=== PATIENT | female | born 1995 | race African-American/Black ===

== ENCOUNTER 2017-08-11 16:06 | Emergency (ER) | payer SELFPAY ==
[2017-08-11 16:11] VITALS: BP 120/79; BMI 21.6
--- NOTE | 2017-08-11 16:32 | ED.ABDFE ---
HPI - Time seen Time seen: 16:50 - PCP Primary Care Physician: JAM - HPI Comment HPI Comment: NO VAGINAL BLEEDING. PATIENT IS 5 MONTHS . NO CARE SO FAR. NO DYSURIA. - Complaint Chief Complaint Doctors Comments: LOWER ABDOMINAL PAIN TIMES 2 DAYS. Chief Complaint:: PATIENT STATED SHE THINKS SHE IS 4 OR 5 MONTHS WITH HER 4TH . SHE STATED SHE HAS BEEN HAVING ABD CRAMPS FOR TWO DAYS - Nurses notes reviewed Nurses Notes Review: Yes - Source History Provided: Patient - Mode of arrival Mode of Arrival: Ambulatory - Timing Onset of Chief Complaint: 08/09/17 Came on: Suddenly - Duration Duration: Constant Duration: Days - Location Location: RLQ, LLQ, Suprapubic - Severity Severity: Moderate - Quality Quality: Cramping - Context Onset: At Rest History of: None - Modifying Worsening Factors: Nothing Improving Factors: Nothing - Associated signs and symptoms Associated Signs and Symptoms: Nausea PMH - PMH Past Medical History: No Past Surgical History: No - Family History History of Family Medical Conditions: Yes Family Medical History: Diabetes Mellitus, Hypertension - Social History Does patient currently use any type of tobacco product: No Have you used tobacco products in the last 12 months: No Type of Tobacco Use: None Does any household member use tobacco: Yes Alcohol Use: None Do you use any recreational Drugs:: No Lives With: Family Lives Where: Home - infectious screening In the last 2 months have you had wt loss of >10#?: NO Have you had fever, night sweats or hemotysis?: No Have you traveled outside the country in the last 6 months?: No Isolation: Standard ROS - Review of Systems Constitutional: No Symptoms Reported Eyes: No Symptoms Reported ENTM: No Symptoms Reported Respiratoy: No Symptoms Reported Cardiovascular: No Symptoms Reported Gastrointestinal/Abdominal: Abdominal Pain, Nausea Genitourinary: Pain. negative: Bleeding Neurological: No Symptoms Reported Musculoskeletal: No Symptoms Reported Integumentary: No Symptoms Reported Hematologic/Lymphatic: No Symptoms Reported Endocrine: No Symptoms Reported All Other Systems: Reviewed and Negative PE - Vital Signs Vitals: Temperature 98.9 F Pulse Rate 83 Respiratory Rate 16 Blood Pressure 120/79 O2 Sat by Pulse Oximetry 100 - General Limitations: No Limitations General Appearance: Alert - Head Head Exam: Normal Inspection - Eyes Eye exam: Normal Appearance - ENT ENT Exam: Normal External Ear Exam - Neck Neck Exam: Trachea Midline - Chest Chest Inspection: Symmetric Chest Wall Rise - Respiratory Respiratory Exam: Normal Lung Sounds Bilat Respiratory Exam: Bilateral Clear to Auscultation - Cardiovascular Cardiovascular Exam: Regular Rate, Normal Rhythm, Normal Heart Sounds - Abdominal Exam Abdominal Exam: Normal Bowel Sounds, Soft, Tenderness Abdominal Tenderness: RLQ, LLQ, Suprapubic - Rectal Rectal Exam: Deferred - Back Back Exam: Normal Inspection - Extremeties Extremities Exam: Normal Inspection - External Exam: Female: Deferred : Speculum Exam (Female): Deferred : Bimanual Exam (female): Deferred - Neurologic Neurological Exam: Alert, Oriented X3 - Psychiatric Psychiatric Exam: Anxious - Skin Skin Exam: Normal Color MDM - Additional Information Obtained From Additional information provided by: Family - Differential Diagnosis Differential Diagnosis- Considerations may include:: -Threatened, Ovarian cyst/torsion, Other (comments) (ABDOMINAL PAIN AFFECTING .) Course - Treatment Treatment: SEE ORDERS. - Education/Counseling Education/Counseling: Patient, Education Educated On: Diagnosis, Needs for Follow Up ROR - Labs Reviewed Laboratory: HCG, Quant 50333 mIU/mL (0-6) H 08/11/17 16:36 Specimen Type Clean catch urine 08/11/17 16:30 Urine Color Yellow (YELLOW) 08/11/17 16:30 Urine Appearance Hazy (CLEAR) 08/11/17 16:30 Urine pH 6.5 (5.0 - 8.0) 08/11/17 16:30 Ur Specific Strawn 1.015 (1.000-1.030) 08/11/17 16:30 Urine Protein Negative (NEGATIVE) 08/11/17 16:30 Urine Glucose (UA) Negative (NEGATIVE) 08/11/17 16:30 Urine Ketones Negative (NEGATIVE) 08/11/17 16:30 Urine Occult Blood Negative (NEGATIVE) 08/11/17 16:30 Urine Nitrite Negative (NEGATIVE) 08/11/17 16:30 Urine Bilirubin Negative (NEGATIVE) 08/11/17 16:30 Urine Urobilinogen Normal (NORMAL) 08/11/17 16:30 Ur Leukocyte Esterase 2+ (NEGATIVE) 08/11/17 16:30 Urine RBC None seen /HPF (NONE SEEN) 08/11/17 16:30 Urine WBC 3-5 /HPF (NONE SEEN) 08/11/17 16:30 Ur Squamous Epith Cells Moderate /HPF (NEGATIVE) 08/11/17 16:30 Urine Bacteria Negative /HPF (NEGATIVE) 08/11/17 16:30 Ur Culture Indicated? No/not indicated 08/11/17 16:30 - XRAY XRAY Interpreted by: Radiologist XRAY Findings: REPORT DISCUSS WITH PATIENT. - Diagnosis Discharge Problem: Abdominal pain affecting - Discharge Plan Disposition: HOME, SELF-CARE Condition: Stable - Follow ups/Referrals Follow ups/Referrals: [facility],None [Primary Care Provider] - 3 days JANES LOMBARDO [STAFF PHYSICIAN] - 1 day - Instructions Instructions: Abdominal Pain During , [id number], Pelvic Rest Additional Instructions: RETURN TO ED IF WORSE. SEE OB THIS WEEK.
[2017-08-11 16:45] LABS: BILIRUBIN,URINE NEGATIVE (NEGATIVE); BLOOD/HEMOGLOBIN,URINE NEGATIVE (NEGATIVE); GLUCOSE, URINE NEGATIVE (NEGATIVE); KETONES,URINE NEGATIVE (NEGATIVE); LEUKOCYTE ESTERASE ,URINE 2+ (NEGATIVE); NITRITES,URINE NEGATIVE (NEGATIVE); PH,URINE 6.5 (5.0 - 8.0); PROTEIN,URINE NEGATIVE (NEGATIVE); UROBILINOGEN,URINE NORMAL (NORMAL)
[2017-08-11 16:57] LABS: APPEARANCE,URINE HAZY (CLEAR); COLOR,URINE YELLOW (YELLOW)
[2017-08-11 16:58] LABS: BACTERIA,URINE NEGATIVE /HPF (NEGATIVE); RBC,URINE NONE SEEN /HPF (NONE SEEN); SQUAMOUS EPITHELIAL CELL,UR MODERATE /HPF (NEGATIVE)
--- NOTE | 2017-08-11 18:50 | US ---
HISTORY: 22-year-old female with lower abdominal and pelvic pain with cramping. Study: OB ultrasound greater than 14 weeks Comparison: None. Technique: Multiple grayscale and color flow Doppler images of the pelvis were obtained with focused evaluation of the fetus. Findings: A viable single intrauterine is identified with heart tones of 135 beats per minute. A breech presentation is observed with an anterior and fundal placenta. Normal amniotic fluid volum e is observed. Evaluation of the anatomy including the stomach, kidneys, urinary bladder, and f our-chamber heart are unremarkable. The extremities and spine are normal in their sonographic appear ance. A three-vessel cord is observed. No intracranial abnormality can be identified. Value Estimated Gestational Age BPD 5.7 cm 23 weeks and 4 days HC 22 cm 23 weeks and 6 days AC 20 cm 24 weeks and 2 days FL 4.5 cm 25 weeks and 0 days Estimated weight 702 g, 57th percentile. IMPRESSION: A viable single intrauterine with an average ultrasound age of 24 weeks and 1 day correspon d to an estimated date of delivery of 11/30/2017. No anatomical abnormalities can be identified. Follow-up with OB. Reported By:
== END 2017-08-11 18:59 | disposition home or self-care (01) ==
LOC: ER 16:16
DX: R10.32 Left lower quadrant pain (principal); Z3A.24 24 weeks gestation of pregnancy
CPT/HCPCS: 36415; 76815; 81001; 84702; 99284